=== PATIENT | female | born 1945 ===

== ENCOUNTER 2024-11-15 12:30 | Inpatient (IN) | payer OTHER ==
[~2024-11-15] VITALS: Ht 99.1 cm; Wt 52.2 kg
[2024-11-15 14:02] VITALS: BP 139/80
[2024-11-15 14:05] VITALS: BP 110/70
[2024-11-15] MEDS ORDERED: COZAAR25 MG PO (14:09)
[2024-11-15] MEDS ORDERED: GLUMETZA500 MG PO (14:09)
[2024-11-15] MEDS ORDERED: SINGULAIR10 MG PO (14:09)
[2024-11-21] MEDS ORDERED: HEMOSTATIC MATRIX 1 KIT KIT TOP ONE (08:07)
[2024-11-21] MEDS ORDERED: SURGIFLO APPLICATOR 1 EACH APPL TOP ONE (08:07)
[2024-11-21] MEDS ORDERED: POVIDONE-IODINE 118 ML BOTT TOP ONE (08:45)
[2024-11-21] MEDS ORDERED: CEFAZOLIN SODIUM 1,000 MG VIAL IV ONE (08:45)
[2024-11-21] MEDS ORDERED: METRONIDAZOLE/SODIUM CHLORIDE 500 MG/100 ML PIGGYBACK IV ONE (08:45)
[2024-11-21] MEDS ORDERED: MORPHINE SULFATE 4 MG/ML CARTRIDGE IV PRN (09:30)
[2024-11-21] MEDS ORDERED: RINGERS SOLUTION,LACTATED 1,000 ML IV SCH (09:30)
[2024-11-21] MEDS ORDERED: OxyCODONE HCL 5 MG TABLET (ROXICODONE) PO PRN (09:30)
[2024-11-21] MEDS ORDERED: MORPHINE SULFATE 4 MG/ML VIAL IV ONE (10:50)
[2024-11-21] MEDS ORDERED: KETOROLAC TROMETHAMINE 30 MG VIAL IM SCH (12:00)
[2024-11-21 12:01] VITALS: BP 110/70
[2024-11-21 12:51] LABS: HEMATOCRIT 36.6 % (36.0-45.00); HEMOGLOBIN 11.7 g/dL (12.0-15.00); MEAN CELL VOLUME 91.4 fL (80.00-100.00); MEAN CORPUSCULAR HEMOGLOBIN 29.3 pg (27.00-32.0); PLATELET COUNT 169 K/uL (150-450); RED CELL DISTRIBUTION WIDTH 14.3 % (11.5-14.5)
[2024-11-21] MEDS ORDERED: SIMETHICONE 125 MG CAPSULE PO SCH (13:00)
[2024-11-21 13:19] LABS: ALBUMIN 3.2 gm/dL (3.4-5.0); CALCIUM 8.8 mg/dL (8.5-10.1); CREATININE SERUM 0.65 mg/dL (0.55-1.02); GFR 88.38; PHOSPHOROUS 3.2 mg/dL (2.5-4.9); POTASSIUM 4.17 mEq/L (3.5-5.1)
[2024-11-21 15:44] VITALS: BP 102/62; O2SAT 98
[2024-11-21] MEDS ORDERED: INSULIN LISPRO 1,000 UNIT/10 ML UNITS SUBCUTANEO PRN (15:45)
[2024-11-21] MEDS ORDERED: DEXTROSE 50 % IN WATER 0.5 G/ML DISP.SYRIN IV PRN (15:45)
[2024-11-21] MEDS ORDERED: ENALAPRILAT DIHYDRATE 1.25 MG/ML VIAL IV PRN (15:45)
[2024-11-21] MEDS ORDERED: METOCLOPRAMIDE HCL 5 MG/ML VIAL IV SCH (17:00)
[2024-11-21] MEDS ORDERED: GABAPENTIN 300 MG CAPSULE PO SCH (17:00)
[2024-11-21] MEDS ORDERED: CEFAZOLIN SODIUM 1,000 MG VIAL IV SCH (17:00)
[2024-11-21 20:49] VITALS: BP 84/52
[2024-11-21] MEDS ORDERED: FAMOTIDINE/PF 20 MG/2 ML VIAL IV PUSH SCH (21:00)
[2024-11-21] MEDS ORDERED: DOCUSATE SODIUM 100MG CAP PO SCH (21:00)
[2024-11-22 00:49] VITALS: BP 95/61; O2SAT 99
[2024-11-22 06:29] LABS: HEMATOCRIT 31.7 % (36.0-45.00); HEMOGLOBIN 10.8 g/dL (12.0-15.00); MEAN CELL VOLUME 89.6 fL (80.00-100.00); MEAN CORPUSCULAR HEMOGLOBIN 30.6 pg (27.00-32.0); MEAN CORPUSCULAR HGB CONC 34.2 g/dl (32.0-36.0); PLATELET COUNT 146 K/uL (150-450); RED BLOOD COUNT 3.53 M/uL (4.00-6.00); RED CELL DISTRIBUTION WIDTH 14.5 % (11.5-14.5)
[2024-11-22 06:57] LABS: ALBUMIN 2.4 gm/dL (3.4-5.0); CALCIUM 7.8 mg/dL (8.5-10.1); CREATININE SERUM 0.68 mg/dL (0.55-1.02); GFR 83.9; PHOSPHOROUS 3.4 mg/dL (2.5-4.9); POTASSIUM 3.97 mEq/L (3.5-5.1)
[2024-11-22 08:24] VITALS: BP 100/59; O2SAT 96
[2024-11-22] MEDS ORDERED: LOSARTAN POTASSIUM 25 MG TABLET PO SCH (09:00)
[2024-11-22] MEDS ORDERED: ENOXAPARIN SODIUM 40 MG/0.4 ML SYRINGE SUBCUTANEO SCH (09:00)
== END 2024-11-22 11:32 | disposition home or self-care (01) | DRG 741 ==
LOC: O/R 11-21 04:45 → SURH 11-21 10:00 → OB/GYN 11-21 11:38 → SURH 11-21 12:30 → OB/GYN 11-22 11:32
PROVIDERS: ADMIT Obstetrics & Gynecology Gynecologic Oncology; ATTEND Obstetrics & Gynecology Gynecologic Oncology
PROC: 0UT74ZZ Resection of Bilateral Fallopian Tubes, Percutaneous Endoscopic Approach (ICD-10-PCS; 2024-11-21)
PROC: 0UT24ZZ Resection of Bilateral Ovaries, Percutaneous Endoscopic Approach (ICD-10-PCS; 2024-11-21)
PROC: 07BC4ZZ Excision of Pelvis Lymphatic, Percutaneous Endoscopic Approach (ICD-10-PCS; 2024-11-21)
PROC: 07BD4ZZ Excision of Aortic Lymphatic, Percutaneous Endoscopic Approach (ICD-10-PCS; 2024-11-21)
PROC: 0UT94ZZ Resection of Uterus, Percutaneous Endoscopic Approach (ICD-10-PCS; principal; 2024-11-21 10:00)
DX: C54.1 Malignant neoplasm of endometrium (principal); C53.0 Malignant neoplasm of endocervix